=== PATIENT | female | born 1945 | race Hispanic/Latino ===

== ENCOUNTER 2025-08-30 13:12 | Outpatient (CLI) | payer OTHER, MEDICAID | END 2025-08-30 13:13 | disposition home or self-care (01) | LOC: NAV RAD 13:12 | PROVIDERS: ATTEND Family Medicine | DX: M51.16 Intervertebral disc disorders with radiculopathy, lumbar region (principal); Z98.1 Arthrodesis status; Z98.890 Other specified postprocedural states | CPT/HCPCS: 72100 ==